=== PATIENT | female | born 1960 | race Caucasian/White ===

== ENCOUNTER 2016-12-30 14:46 | Inpatient (IN) | payer OTHER ==
[~2016-12-30] VITALS: Ht 180.3 cm; Wt 71.1 kg
[~2016-12-30 14:46] MED LIST: DICL75 PO; HYDR-3533 PO
[2016-12-30 14:53] VITALS: BP 151/91; PULSE 86; RESP 16; TEMP 97.4; O2SAT 100
[2016-12-30] MEDS ORDERED: SODIUM CHLOR 0.9% 1000 ML INJ 1,000 ML IV SCH (15:06)
--- NOTE | 2016-12-30 15:11 | PD ---
HPI Chief Complaint: GI Complaint Time Seen by Provider: 15:06 Travel History International Travel<30 days: No Contact w/Intl Traveler<30days: No Traveled to known affect area: No History of Present Illness HPI The patient is a 56-year-old female who presents to the emergency department for nausea, vomiting, diarrhea, and crampy abdominal pain. The patient states her symptoms started approximate 5 days ago with cough and cold symptoms, sore throat, and cough. The patient didn't develop nausea, vomiting, diarrhea, and intermittent abdominal cramping. The patient states her URI symptoms have resolved, however, she continues to have vomiting and diarrhea. The patient describes the diarrhea as loose, watery, brown, without any visible blood. The patient denies any foul smell associated with the diarrhea. 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 The patient states she originally had fevers associated with URI symptoms which have currently resolved. Abdominal pain is intermittent, crampy, and diffuse. The patient denies any associated dysuria. The patient denies any previous abdominal surgeries. The patient denies any history of C. difficile. [facility] Past Medical History Medical History: Denies Significant Hx Diminished Hearing: No Influenza Vaccination: Yes ?: Not Menopausal: Yes Past Surgical History Narrative Surgical Tonsillectomy Social History Alcohol Use: Yes Tobacco Use: No Substance Use: No Allergies-Medications (Allergen,Severity, Reaction): Coded Allergies: No Known Allergies (Unverified , 12/30/16) Reported Meds & Prescriptions Reported Meds & Active Scripts Active No Active Prescriptions or Reported Medications Review of Systems Except as stated in HPI: all other systems reviewed are Neg General / Constitutional: Positive: Fever (several days ago which have resolved ) HENT: Positive: Congestion (several days ago which has resolved) Respiratory: Positive: Cough (several days ago which has resolved) Gastrointestinal: Positive: Nausea, Vomiting, Diarrhea, Abdominal Pain Genitourinary: No: Dysuria Musculoskeletal: Positive: Cramping Physical Exam Narrative GENERAL: Awake, alert, pleasant 56-year-old female who appears her stated age and is in no acute respiratory distress. SKIN: Focused skin assessment warm/dry. HEAD: Atraumatic. Normocephalic. EYES: Pupils equal and round. No scleral icterus. No injection or drainage. ENT: No nasal bleeding or discharge. Slightly dry mucous membranes. NECK: Trachea midline. No JVD. CARDIOVASCULAR: Regular rate and rhythm. No murmur appreciated. RESPIRATORY: No accessory muscle use. Clear to auscultation. Breath sounds equal bilaterally. GASTROINTESTINAL: Abdomen soft, mild epigastric tenderness. No rebound tenderness, guarding, rigidity. MUSCULOSKELETAL: No obvious deformities. No clubbing. No cyanosis. No edema. NEUROLOGICAL: Awake and alert. No obvious cranial nerve deficits. Motor grossly within normal limits. Normal speech. PSYCHIATRIC: Appropriate mood and affect; insight and judgment normal. Data Data Last Documented VS Vital Signs Date Time Temp Pulse Resp B/P Pulse Ox O2 Delivery O2 Flow Rate FiO2 12/30/16 16:33 81 18 146/72 100 Room Air 12/30/16 14:53 97.4 Orders Complete Blood Count With Diff (12/30/16 15:06) Comprehensive Metabolic Panel (12/30/16 15:06) Lipase (12/30/16 15:06) Urinalysis - C+S If Indicated (12/30/16 15:06) Iv Access Insert/Monitor (12/30/16 15:06) Ecg Monitoring (12/30/16 15:06) Oximetry (12/30/16 15:06) Ondansetron Inj (Zofran Inj) (12/30/16 15:15) Sodium Chlor 0.9% 1000 Ml Inj (Ns 1000 M (12/30/16 15:06) Sodium Chloride 0.9% Flush (Ns Flush) (12/30/16 15:15) Famotidine Inj (Pepcid Inj) (12/30/16 15:15) Dicyclomine (Bentyl) (12/30/16 15:15) Sodium Chlor 0.9% 1000 Ml Inj (Ns 1000 M (12/30/16 15:15) Admit Order (Ed Use Only) (12/30/16 16:40) Labs Laboratory Tests Test 12/30/16 15:15 White Blood Count 5.5 TH/MM3 Red Blood Count 4.52 MIL/MM3 Hemoglobin 12.7 GM/DL Hematocrit 37.8 % Mean Corpuscular Volume 83.8 FL Mean Corpuscular Hemoglobin 28.2 PG Mean Corpuscular Hemoglobin 33.7 % Concent Red Cell Distribution Width 11.4 % Platelet Count 301 TH/MM3 Mean Platelet Volume 7.9 FL Neutrophils (%) (Auto) 72.7 % Lymphocytes (%) (Auto) 17.0 % Monocytes (%) (Auto) 8.7 % Eosinophils (%) (Auto) 1.1 % Basophils (%) (Auto) 0.5 % Neutrophils # (Auto) 4.0 TH/MM3 Lymphocytes # (Auto) 0.9 TH/MM3 Monocytes # (Auto) 0.5 TH/MM3 Eosinophils # (Auto) 0.1 TH/MM3 Basophils # (Auto) 0.0 TH/MM3 CBC Comment DIFF FINAL Differential Comment Sodium Level 121 MEQ/L Potassium Level 4.1 MEQ/L Chloride Level 83 MEQ/L Carbon Dioxide Level 26.4 MEQ/L Anion Gap 12 MEQ/L Blood Urea Nitrogen 6 MG/DL Creatinine 0.63 MG/DL Estimat Glomerular Filtration 98 ML/MIN Rate Random Glucose 90 MG/DL Calcium Level 8.7 MG/DL Total Bilirubin 0.7 MG/DL Aspartate Amino Transf 22 U/L (AST/SGOT) Alanine Aminotransferase 21 U/L (ALT/SGPT) Alkaline Phosphatase 81 U/L Total Protein 7.4 GM/DL Albumin 3.6 GM/DL Lipase 142 U/L [facility] Medical Decision Making Medical Screen Exam Complete: Yes Emergency Medical Condition: Yes Medical Record Reviewed: Yes Interpretation(s) Laboratory Tests Test 12/30/16 15:15 White Blood Count 5.5 TH/MM3 Red Blood Count 4.52 MIL/MM3 Hemoglobin 12.7 GM/DL Hematocrit 37.8 % Mean Corpuscular Volume 83.8 FL Mean Corpuscular Hemoglobin 28.2 PG Mean Corpuscular Hemoglobin 33.7 % Concent Red Cell Distribution Width 11.4 % Platelet Count 301 TH/MM3 Mean Platelet Volume 7.9 FL Neutrophils (%) (Auto) 72.7 % Lymphocytes (%) (Auto) 17.0 % Monocytes (%) (Auto) 8.7 % Eosinophils (%) (Auto) 1.1 % Basophils (%) (Auto) 0.5 % Neutrophils # (Auto) 4.0 TH/MM3 Lymphocytes # (Auto) 0.9 TH/MM3 Monocytes # (Auto) 0.5 TH/MM3 Eosinophils # (Auto) 0.1 TH/MM3 Basophils # (Auto) 0.0 TH/MM3 CBC Comment DIFF FINAL Differential Comment Sodium Level 121 MEQ/L Potassium Level 4.1 MEQ/L Chloride Level 83 MEQ/L Carbon Dioxide Level 26.4 MEQ/L Anion Gap 12 MEQ/L Blood Urea Nitrogen 6 MG/DL Creatinine 0.63 MG/DL Estimat Glomerular Filtration 98 ML/MIN Rate Random Glucose 90 MG/DL Calcium Level 8.7 MG/DL Total Bilirubin 0.7 MG/DL Aspartate Amino Transf 22 U/L (AST/SGOT) Alanine Aminotransferase 21 U/L (ALT/SGPT) Alkaline Phosphatase 81 U/L Total Protein 7.4 GM/DL Albumin 3.6 GM/DL Lipase 142 U/L Differential Diagnosis Differential diagnosis includes gastroenteritis, viral syndrome, influenza, enteritis, colitis, pancreatitis, dehydration, electrolyte abnormality. Narrative Course IV was established, labs were drawn and sent, and the patient was placed on cardiac telemetry monitoring and continuous pulse oximetry monitoring. The patient was administered IV fluids, Bentyl, and Zofran. The patient declined morphine. Influenza screen was not sent as the patient's symptoms been ongoing for longer than 48 hours, patient would not be a candidate for Tamiflu. The patient's white count is normal. However, sodium is low at 121. The patient appears dehydrated and hemoconcentrated with hyponatremia, most likely from volume depletion and subsequent vomiting/diarrhea. I believe the patient needs IV fluids and not fluid restriction. The patient does have some generalized symptoms with sodium as low as 121, therefore, will be admitted for IV fluids and repeat sodium. The patient has had no seizure activity or altered mental status, therefore, I do not believe the patient needs 3% sodium chloride. The patient does not have a local primary physician, [facility] Physician Communication Physician Communication [facility]. I discussed the patient with Dr. Hager who agrees with admission. Diagnosis Primary Impression: Hyponatremia Additional Impression: Gastroenteritis Admitting Information Admitting Physician Requests: Admit Scripts No Active Prescriptions or Reported Meds Condition: Stable Yves Salas MD Dec 30, 2016 15:11
[2016-12-30] MEDS ORDERED: FAMOTIDINE 20 MG/2 ML VIAL IV PUSH ONE (15:15)
[2016-12-30] MEDS ORDERED: ONDANSETRON HCL 4 MG/2 ML VIAL IVP ONE (15:15)
[2016-12-30] MEDS ORDERED: SODIUM CHLORIDE 0.9% FLUSH 10 ML FLUSH IV FLUSH PRN ×2 (15:15→16:45)
[2016-12-30] MEDS ORDERED: SODIUM CHLOR 0.9% 1000 ML INJ 1,000 ML IV ONE ×2 (15:15→16:45)
[2016-12-30] MEDS ORDERED: DICYCLOMINE HCL 10 MG CAP PO ONE (15:15)
[2016-12-30 15:22] LABS: BASOPHIL % 0.5 % (0.0-2.0); EOSINOPHIL # 0.1 TH/MM3 (0-0.4); EOSINOPHIL % 1.1 % (0.0-4.0); HEMATOCRIT 37.8 % (35.0-46.0); HEMO FLAGS DIFF FINAL; LYMPHOCYTE # 0.9 TH/MM3 (1.0-4.8); MEAN CELL VOLUME 83.8 FL (80.0-100.0); MEAN CORPUSCULAR HEMOGLOBIN 28.2 PG (27.0-34.0); MEAN CORPUSCULAR HGB CONC 33.7 % (32.0-36.0); MONO % 8.7 % (0.0-8.0); NEUT % 72.7 % (16.0-70.0); PLATELET COUNT 301 TH/MM3 (150-450); RED BLOOD COUNT 4.52 MIL/MM3 (4.00-5.30); RED CELL DISTRIBUTION WIDTH 11.4 % (11.6-17.2); WHITE BLOOD COUNT 5.5 TH/MM3 (4.0-11.0)
[2016-12-30 15:31] VITALS: O2SAT 98
[2016-12-30 16:18] LABS: ALKALINE PHOSPHATASE 81 U/L (45-117); ALT (GPT) 21 U/L (10-53); ANION GAP 12 MEQ/L (5-15); AST (GOT) 22 U/L (15-37); BICARBONATE 26.4 MEQ/L (21.0-32.0); BLOOD UREA NITROGEN 6 MG/DL (7-18); CHLORIDE 83 MEQ/L (98-107); GLOMERULAR FILTRATION RATE 98 ML/MIN (>89); POTASSIUM 4.1 MEQ/L (3.5-5.1); TOTAL BILIRUBIN ADULT 0.7 MG/DL (0.2-1.0)
[2016-12-30 16:20] LABS: SODIUM (NA) 121 MEQ/L (136-145)
[2016-12-30 16:33] VITALS: BP 146/72; PULSE 81; RESP 18; O2SAT 100
[2016-12-30] MEDS ORDERED: NALOXONE HCL 0.4 MG/ML AMP IV PRN (16:45)
[2016-12-30 16:46] LABS: BLOOD, URINE NEG (NEG); GLUCOSE,URINE NEG (NEG); KETONE, URINE 15 mg/dL (NEG); NITRITE,URINE NEG (NEG)
[2016-12-30 16:57] LABS: METHOD OF COLLECTION CLEAN CATCH; URINE COLOR YELLOW (YELLW/STRAW)
[2016-12-30 16:58] LABS: COMMENT (UR) CULT NOT INDICATED; CULTURE IF INDICATED CULT NOT INDICATED; SQUAMOUS EPITHELIAL CELL URINE 0-5 /hpf (0-5); WBC, URINE 0-2 /hpf (0-5)
[2016-12-30] MEDS ORDERED: ENOXAPARIN SODIUM 40 MG/0.4 ML SYRINGE SQ SCH (17:00)
[2016-12-30 18:00] VITALS: BP 156/92; PULSE 83; RESP 20; TEMP 97.2; O2SAT 100
[2016-12-30 18:01] LABS: BICARBONATE 24.2 MEQ/L (21.0-32.0); POTASSIUM 4.1 MEQ/L (3.5-5.1)
[2016-12-30 20:00] VITALS: BP 139/75; PULSE 78; RESP 18; TEMP 98.2; O2SAT 99
[2016-12-30] MEDS ORDERED: ALUMINUM/MAGNESIUM/SIMETH 30 ML CUP PO PRN (20:45)
[2016-12-30] MEDS ORDERED: MAGNESIUM HYDROXIDE SUSP 30 ML CUP PO PRN (20:45)
[2016-12-30] MEDS ORDERED: ONDANSETRON HCL 4 MG/2 ML VIAL IV PRN (20:45)
[2016-12-30] MEDS ORDERED: ACETAMINOPHEN 325 MG TAB PO PRN (20:45)
[2016-12-30] MEDS ORDERED: DOCUSATE SODIUM 100 MG CAP PO PRN (20:45)
[2016-12-30] MEDS ORDERED: CALCIUM CARBONATE 500 MG CHEWABLE TAB CHEW PRN (20:45)
[2016-12-30] MEDS: SODIUM CHLORIDE 0.9% FLUSH 10 ML FLUSH IV FLUSH SCH (21:00)
[2016-12-30] MEDS ORDERED: guaiFENesin/CODEINE SYRUP 200 MG/20 MG/10 ML CUP PO PRN (21:30)
[2016-12-31] VITALS: BP 95/62; PULSE 84; RESP 18; TEMP 97; O2SAT 98
[2016-12-31 04:00] VITALS: BP 124/67; PULSE 87; RESP 18; TEMP 99.2; O2SAT 98
[2016-12-31 05:21] LABS: AUTOMATED NEUTROPHIL # 3.8 TH/MM3 (1.8-7.7); BASOPHIL % 0.5 % (0.0-2.0); EOSINOPHIL # 0.1 TH/MM3 (0-0.4); HEMATOCRIT 33.7 % (35.0-46.0); HEMO FLAGS DIFF FINAL; LYMPH % 15.8 % (9.0-44.0); LYMPHOCYTE # 0.8 TH/MM3 (1.0-4.8); MEAN CELL VOLUME 83.9 FL (80.0-100.0); MEAN CORPUSCULAR HEMOGLOBIN 28.6 PG (27.0-34.0); MEAN CORPUSCULAR HGB CONC 34.1 % (32.0-36.0); MONO % 8.6 % (0.0-8.0); NEUT % 74.1 % (16.0-70.0); PLATELET COUNT 253 TH/MM3 (150-450); RED BLOOD COUNT 4.02 MIL/MM3 (4.00-5.30); RED CELL DISTRIBUTION WIDTH 11.1 % (11.6-17.2); WHITE BLOOD COUNT 5.1 TH/MM3 (4.0-11.0)
[2016-12-31 07:00] VITALS: PULSE 86
[2016-12-31 08:00] VITALS: BP 141/88; PULSE 85; RESP 20; TEMP 97.5; O2SAT 100
[2016-12-31] MEDS ORDERED: GUAI100S5 PO (08:29)
[2016-12-31] MEDS ORDERED: ZANT150T2 PO (08:29)
--- NOTE | 2016-12-31 08:30 | HHI.DCPOC ---
Discharge Care Plan Diagnosis: (1) Gastroenteritis (2) Hyponatremia Your Health Problems Are: Difficulty with ADL Exercise Tolerance Goals to Promote Your Health * To prevent worsening of your condition and complications * To maintain your health at the optimal level Directions to Meet Your Goals Take your medications as prescribed Follow your dietary instruction Follow activity as directed Keep your appointments as scheduled Take your immunizations and boosters as scheduled If your symptoms worsen call your PCP, if no PCP go to Urgent Care Center or Emergency Room Smoking is Dangerous to Your Health. Avoid second hand smoke Call the 24-hour hour crisis hotline for domestic abuse at Jacky Gunn MD Dec 31, 2016 08:29
--- NOTE | 2016-12-31 08:46 | RADHPO ---
EXAM DATE/TIME: 12/31/2016 08:30 [facility] COMPARISON: No previous studies available for comparison. INDICATIONS : Upper respiratiory infection.Hyponatremia. MEDICAL HISTORY : None. SURGICAL HISTORY : Tonsillectomy. Right knee repair. ENCOUNTER: Initial ACUITY: 2 days PAIN SCORE: 0/10 LOCATION: chest FINDINGS: There is slight linear scarring in the axillary portion of the right lung. There is some nodular and linear density in the contralateral left axillary region. There is mild bilateral apical pleural-pare nchymal density. We have no comparison studies to document stability. There is no evidence of effusio n. The cardiomediastinal contours are satisfactory. Thoracic skeleton is grossly intact. CONCLUSION: Mild nonspecific upper lung zone pleuroparenchymal densities. Followup suggested to document stabilit y in this patient with no available comparisons. Ministerio Umana MD on December 31, 2016 at 8:41 Board Certified Radiologist. This report was verified electronically.
[2016-12-31] MEDS: SODIUM CHLORIDE 0.9% FLUSH 10 ML FLUSH IV FLUSH SCH (08:57)
--- NOTE | 2016-12-31 10:00 | HHI.HP ---
[facility] Primary Care Physician No Primary Care Physician Admission Diagnosis hyponatremia, gastroenteritis, dehydration Diagnoses: (1) Hyponatremia Diagnosis: Principal (2) Gastroenteritis Diagnosis: Principal Chief Complaint: Nausea, vomiting, diarrhea, muscle cramps Travel History International Travel<30 Days: No Contact w/Intl Traveler <30 Da: No Traveled to Known Affected Are: No History of Present Illness 56-year-old female with no chronic medical illnesses who presented to hospital because of nausea, vomiting, diarrhea, muscle cramps. 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 She resides here in [place] and does not have a primary medical doctor. Patient states that she was exposed to someone with the flu last Wednesday. Subsequently after that, she started developing upper respiratory symptoms to include sore throat, fever, cough, congestion. Her symptoms progressed to nausea, vomiting and diarrhea on Wednesday of last week. Patient states that she has tried to keep down fluids and eat, however was unsuccessful. She states that whenever she vomited there is no indication of bile but food products. Patient started having progressive weakness, muscle cramps, muscle weakness so she came to the hospital for evaluation. Patient was found to have significant hyponatremia and was given 3 L of fluid emergency department. Shortly after she received the 3 L of fluid the patient felt significantly better. She no longer experiencing any muscle weakness, muscle cramps. Denied any lightheadedness, dizziness, visual disturbances, paresthesia. Her appetite has returned and she has ate dinner and breakfast this morning. Patient states that she has not had any nausea, vomiting, diarrhea since presenting to the hospital. Her symptomatology has significantly improved and she is very eager to go home. Review of Systems Constitutional: DENIES: Diaphoretic episodes, Fatigue, Fever, Weight gain, Weight loss, Chills, Dizziness, Change in appetite, Night Sweats Eyes: DENIES: Blurred vision, Diplopia, Eye inflammation, Eye pain, Vision loss , Double Vision Ears, nose, mouth, throat: COMPLAINS OF: Throat pain, Running Nose, DENIES: Vertigo, Nasal discharge, Ear Pain, Sinus Pain Respiratory: COMPLAINS OF: Cough, Sputum production, DENIES: Apneas, Snoring, Wheezing, Hemoptysis, Shortness of breath Cardiovascular: DENIES: Chest pain, Palpitations, Syncope, Dyspnea on Exertion , Lower Extremity Edema, Orthopnea Gastrointestinal: COMPLAINS OF: Abdominal pain, Diarrhea, Nausea, Vomiting, DENIES: Black stools, Bloody stools, Constipation, Difficulty Swallowing, Anorexia Musculoskeletal: COMPLAINS OF: Muscle aches Neurologic: DENIES: Abnormal gait, Headache, Localized weakness, Paresthesias, Seizures, Speech Problems, Tremor, Poor Balance Past Family Social History Past Medical History No chronic medical illnesses Past Surgical History Tonsillectomy Right knee surgery Cosmetic surgery, patient did not divulge exactly what kind Reported Medications Reported Meds & Active Scripts Active Zantac (Ranitidine HCl) 150 Mg Tab 150 Mg PO DAILY Guaifenesin-Codeine Liq 100-10 Mg/5 Ml Soln 10 Ml PO Q6H PRN Allergies: Coded Allergies: No Known Allergies (Unverified , 12/30/16) Family History Reviewed is significant for father having heart disease. Mother with breast cancer Social History Patient states that she smoked a little while she is in college. Has not smoked since then. Denies any alcohol or illicit drugs Physical Exam Vital Signs Vital Signs Date Time Temp Pulse Resp B/P Pulse Ox O2 Delivery O2 Flow Rate FiO2 12/31/16 08:00 97.5 85 20 141/88 100 12/31/16 04:00 99.2 87 18 124/67 98 12/31/16 00:00 97.0 84 18 95/62 98 12/30/16 20:00 98.2 78 18 139/75 99 12/30/16 18:00 97.2 83 20 156/92 100 12/30/16 16:33 81 18 146/72 100 Room Air 12/30/16 15:31 98 Room Air 12/30/16 14:53 97.4 86 16 151/91 100 Physical Exam GENERAL: Well-developed, well-nourished, in no acute distress. alert and orientated HEENT: Head is normocephalic without any lesions or masses noted. Facial features are symmetric. Eyes: Pupils equal round reactive to light. Extraocular muscles are intact. Conjunctivae were clear. Oropharyngeal: Pharynx without any erythema edema. Tongue is midline without deviation. Buccal mucosa is moist without any masses or lesions NECK: Supple without any masses. Trachea midline no deviation. No JVD, no bruits are appreciated CARDIAC: Regular rhythm, regular rate. S1/S2 are heard. No murmurs gallops or rubs. LUNGS: Clear to auscultation bilaterally. No wheeze, rhonchi or rales. No use of accessory muscles on inspiration or expiration. ABDOMEN: Soft, nontender. Nondistended. Bowel sounds heard in all 4 quadrants. No organomegaly or masses. Negative rebound, negative guarding EXTREMITIES: No edema, pulses are equal bilaterally. No cyanosis or clubbing NEUROLOGY: Mood and affect appear appropriate. Cranial nerves II through XII grossly intact. Muscle strength 5/5 in upper and lower extremities bilaterally. Deep tendon reflexes are 2+ in upper and lower extremities bilaterally. Laboratory Laboratory Tests Test 12/30/16 12/30/16 12/30/16 12/30/16 15:15 16:32 17:05 19:32 White Blood Count 5.5 Red Blood Count 4.52 Hemoglobin 12.7 Hematocrit 37.8 Mean Corpuscular Volume 83.8 Mean Corpuscular Hemoglobin 28.2 Mean Corpuscular Hemoglobin 33.7 Concent Red Cell Distribution Width 11.4 Platelet Count 301 Mean Platelet Volume 7.9 Neutrophils (%) (Auto) 72.7 Lymphocytes (%) (Auto) 17.0 Monocytes (%) (Auto) 8.7 Eosinophils (%) (Auto) 1.1 Basophils (%) (Auto) 0.5 Neutrophils # (Auto) 4.0 Lymphocytes # (Auto) 0.9 Monocytes # (Auto) 0.5 Eosinophils # (Auto) 0.1 Basophils # (Auto) 0.0 CBC Comment DIFF FINAL Differential Comment Sodium Level 121 126 Potassium Level 4.1 4.1 Chloride Level 83 91 Carbon Dioxide Level 26.4 24.2 Anion Gap 12 11 Blood Urea Nitrogen 6 5 Creatinine 0.63 0.58 Estimat Glomerular Filtration 98 108 Rate Random Glucose 90 82 Calcium Level 8.7 8.1 Total Bilirubin 0.7 Aspartate Amino Transf 22 (AST/SGOT) Alanine Aminotransferase 21 (ALT/SGPT) Alkaline Phosphatase 81 Total Protein 7.4 Albumin 3.6 Lipase 142 Urine Collection Type CLEAN CATCH Urine Color YELLOW Urine Turbidity CLEAR Urine pH 6.0 Urine Specific [place] 1.005 Urine Protein NEG Urine Glucose (UA) NEG Urine Ketones 15 Urine Occult Blood NEG Urine Nitrite NEG Urine Bilirubin NEG Urine Leukocyte Esterase NEG Urine WBC 0-2 Urine Squamous Epithelial 0-5 Cells Microscopic Urinalysis Comment CULT NOT INDICATED Urine Collection Time 16:32 Serum Osmolality 271 Test 12/31/16 05:00 White Blood Count 5.1 Red Blood Count 4.02 Hemoglobin 11.5 Hematocrit 33.7 Mean Corpuscular Volume 83.9 Mean Corpuscular Hemoglobin 28.6 Mean Corpuscular Hemoglobin 34.1 Concent Red Cell Distribution Width 11.1 Platelet Count 253 Mean Platelet Volume 8.4 Neutrophils (%) (Auto) 74.1 Lymphocytes (%) (Auto) 15.8 Monocytes (%) (Auto) 8.6 Eosinophils (%) (Auto) 1.0 Basophils (%) (Auto) 0.5 Neutrophils # (Auto) 3.8 Lymphocytes # (Auto) 0.8 Monocytes # (Auto) 0.4 Eosinophils # (Auto) 0.1 Basophils # (Auto) 0.0 CBC Comment DIFF FINAL Differential Comment Sodium Level 135 Potassium Level 4.0 Chloride Level 98 Carbon Dioxide Level 27.0 Anion Gap 10 Blood Urea Nitrogen 4 Creatinine 0.60 Estimat Glomerular Filtration 104 Rate Random Glucose 92 Calcium Level 8.2 Thyroid Stimulating Hormone 2.160 3rd Gen Result Diagram: 12/31/16 0500 12/31/16 0500 Imaging Last Impressions Chest X-Ray 12/31/16 0000 Signed Impressions: Service Date/Time: December 08:30 - CONCLUSION: Mild nonspecific upper lung zone pleuroparenchymal densities. Followup suggested to document stability in this patient with no available comparisons. Ministerio Umana MD Assessment and Plan Problem List: (1) Gastroenteritis ICD Code: K52.9 Status: Acute (2) Hyponatremia ICD Code: E87.1 Status: Acute Assessment and Plan Severe Hyponatremia: Resolved. Likely due to GI loss. Patient presented with nausea, vomiting, diarrhea and muscle pain and cramps. Status post 3 L normal saline in emergency department Serum osmolality was 271 TSH was normal Chest x-ray indicates right lung pleural parenchymal density, recommending short term follow-up Gastroenteritis, resolved. Likely viral in nature Patient was given IV fluids Patient tolerating diet at this time without any nausea or vomiting. Patient longer experiencing any diarrhea DVT prevention Sequential compression devices Written by Ray Scott PA-C, acting as scribe for Dr. Gunn on 12/31/16 at 0800. The documentation accurately reflects the work and decisions performed face-to- face by Dr. Gunn on 12/31/16 at 0800. This note was transcribed by scribsanket Scott PA-C. I, Dr. Jacky Gunn personally performed the history, physical exam, and medical decision making; and confirmed the accuracy of the information in the transcribed note. Authenticated by Dr. Jacky Gunn on 12/31/16 at 19:13. Discharge disposition Patient's clinical condition improved much quicker than anticipated. Patient clinically stable this time. Hyponatremia significantly improved. Plan to discharge home in stable condition Activity: Ad tj. recommend patient not to return to work for at least 2 more days Diet: Regular diet Meds: Guaifenesin with codeine Follow-up primary medical doctor in one week Discussed Condition With pt Physician Certification 2 Midnight Certification Type: Admission for Inpatient Services Order for Inpatient Services The services are ordered in accordance with Medicare regulations or non- Medicare payer requirements, as applicable. In the case of services not specified as inpatient-only, they are appropriately provided as inpatient services in accordance with the 2-midnight benchmark. Estimated LOS (days): 1 days is the estimated time the patient will need to remain in the hospital, assuming treatment plan goals are met and no additional complications. Post-Hospital Plan: Not yet determined Ray Scott Dec 31, 2016 10:00 Jacky Gunn MD Dec 31, 2016 19:13
== END 2016-12-31 10:43 | disposition home or self-care (01) | DRG 641 ==
LOC: PHED 14:46 → PHEDA 16:41 → PH3B 17:33
PROVIDERS: ADMIT Internal Medicine; ATTEND Internal Medicine
DX: E87.1 Hypo-osmolality and hyponatremia (principal); E86.0 Dehydration; K52.9 Noninfective gastroenteritis and colitis, unspecified; Z87.891 Personal history of nicotine dependence
CPT/HCPCS: 71020; 80048; 80053; 81001; 83690; 83930; 83935; 84300; 84443; 85025; 96361; 96374; 96375; J1650; J2405; J7030